=== PATIENT | male | born 1995 | race African-American/Black ===

== ENCOUNTER 2018-01-15 05:27 | Inpatient (IN) | payer MEDICAID ==
[~2018-01-15] VITALS: Ht 188 cm; Wt 110.8 kg
[2018-01-15] MEDS ORDERED: DICYCLOMINE 10 MG/ML, 2ML IM ONE (06:30)
[2018-01-15] MEDS ORDERED: ONDANSETRON ODT 4 MG PO ONE ×2 (06:30→10:30)
[2018-01-15] MEDS ORDERED: MAALOX/HYOSCYAMINE/LIDOCAINE 45 ML BTL PO ONE (06:30)
[2018-01-15] MEDS ORDERED: SODIUM CHLORIDE FLUSH 10ML SYR IVF ONE (06:30)
[2018-01-15] MEDS ORDERED: DICYCLOMINE 10 MG/ML, 2ML ONE (07:03)
[2018-01-15] MEDS ORDERED: MAALOX/HYOSCYAMINE/LIDOCAINE 45 ML BTL ONE (07:03)
[2018-01-15] MEDS ORDERED: ONDANSETRON ODT 4 MG ONE ×2 (07:03→10:26)
[2018-01-15 07:16] LABS: ALANINE AMINOTRANSFERASE 31 U/L (12-78); ALBUMIN 3.8 g/dL (3.4-5.0); ANION GAP 6 mmol/L (5-15); CALCIUM 9.4 mg/dL (8.5-10.1); CHLORIDE 106 mmol/L (98-107); CREATININE 0.93 mg/dL (0.7-1.3)
[2018-01-15 07:19] LABS: ALKALINE PHOSPHATASE 84 U/L (45-117); BILIRUBIN,TOTAL 0.4 mg/dL (0.2-1.0); TOTAL PROTEIN 8.4 g/dL (6.4-8.2)
[2018-01-15 07:36] LABS: MICROSCOPIC INDICATED
[2018-01-15 07:44] LABS: CULTURE INDICATED? NO
[2018-01-15 08:08] LABS: BASOPHILS # (AUTO) 0.01 x10^3/uL (0-0.1); BASOPHILS % (AUTO) 0 % (0-1); EOSINOPHILS # (AUTO) 0.02 x10^3/uL (0-0.4); EOSINOPHILS % (AUTO) 0 % (1-7); LYMPHOCYTES # (AUTO) 1.06 x10^3/uL (1-3.4); LYMPHOCYTES % (AUTO) 11 % (22-44); MD SCAN; MEAN CORPUSCULAR HEMOGLOBIN 28.9 pg (27.5-34.5); MEAN CORPUSCULAR HGB CONC 33.7 g/dL (33.2-36.2); MEAN CORPUSCULAR VOLUME 85.8 fL (81-97); MEAN PLATELET VOLUME 9.4 fL (7.4-10.4); MONOCYTES # (AUTO) 0.59 x10^3/uL (0.2-0.8); MONOCYTES % (AUTO) 6 % (2-9); NEUTROPHILS # (AUTO) 7.74 x10^3/uL (1.8-6.8); NEUTROPHILS % (AUTO) 82 % (42-75); PLATELET COUNT 168 x10^3/uL (130-400); RED BLOOD COUNT 5.77 x10^6/uL (4.38-5.82); RED CELL DISTRIBUTION WIDTH 13.9 % (9.4-14.8)
[2018-01-15] MEDS ORDERED: PROMETHAZINE 25 MG/ML, 1ML IM ONE (09:00)
[2018-01-15] MEDS ORDERED: PROMETHAZINE 25 MG/ML, 1ML ONE (09:06)
[2018-01-15] MEDS: SODIUM CHLORIDE 0.9% 1,000 ML IV SCH ×2 (10:19→10:25)
[2018-01-15] MEDS ORDERED: KETOROLAC 30 MG/1 ML IV PRN (12:30)
[2018-01-15] MEDS ORDERED: ONDANSETRON 2MG/ML, 2ML IVPush PRN (12:30)
[2018-01-15] MEDS ORDERED: ENALAPRILAT 1.25 MG/ML, 2ML IVPush PRN (12:30)
[2018-01-15] MEDS ORDERED: ACETAMINOPHEN 325 MG TABLET PO PRN (12:30)
[2018-01-15] MEDS ORDERED: LABETALOL 5MG/ML, 20ML IVPush PRN (12:30)
[2018-01-15] MEDS ORDERED: POTASSIUM CHLORIDE 40 MEQ in SODIUM CHLORIDE 0.9% 500 ML IV ONE (12:30)
[2018-01-15 13:10] VITALS: BP 136/87
[2018-01-15 13:29] LABS: CHOL/HDL RATIO 3.2
[2018-01-15 13:39] LABS: HEMOGLOBIN A1C 5.9 % (4.2-6.3)
[2018-01-15 15:06] LABS: CLOSTRIDIUM DIFFICILE ANTIGEN POSITIVE; CLOSTRIDIUM DIFFICILE TOXIN POSITIVE (Negative)
[2018-01-15] MEDS: VANCOMYCIN 50 MG/ML ORAL SUSP PO SCH ×2 (16:08→20:03)
[2018-01-15 17:17] LABS: AMPHETAMINE SCREEN, URINE Negative (Negative); BARBITURATE SCREEN, URINE Negative (Negative); BENZODIAZEPINE SCREEN, URINE Negative (Negative); CANNABINOID SCREEN, URINE Negative (Negative); COCAINE SCREEN, URINE Negative (Negative); METHADONE SCREEN, URINE Negative (Negative); OPIATE SCREEN, URINE Negative (Negative)
[2018-01-15] MEDS: METRONIDAZOLE PMX 500MG/100ML 100 ML IV SCH (18:07)
[2018-01-15 19:00] VITALS: BP 136/87
[2018-01-15] MEDS: METOCLOPRAMIDE 5 MG/ML, 2ML IVPush PRN (20:02)
[2018-01-16] MEDS: METRONIDAZOLE PMX 500MG/100ML 100 ML IV SCH ×3 (00:04→16:38)
[2018-01-16 01:50] VITALS: BP 130/77
[2018-01-16] MEDS: VANCOMYCIN 50 MG/ML ORAL SUSP PO SCH ×4 (03:27→22:14)
[2018-01-16] MEDS: METOCLOPRAMIDE 5 MG/ML, 2ML IVPush PRN ×4 (03:27→22:14)
[2018-01-16 05:24] LABS: BASOPHILS # (AUTO) 0.05 x10^3/uL (0-0.1); BASOPHILS % (AUTO) 0 % (0-1); EOSINOPHILS # (AUTO) 0.09 x10^3/uL (0-0.4); EOSINOPHILS % (AUTO) 1 % (1-7); LYMPHOCYTES # (AUTO) 1.78 x10^3/uL (1-3.4); LYMPHOCYTES % (AUTO) 16 % (22-44); MD NO; MEAN CORPUSCULAR HEMOGLOBIN 29.3 pg (27.5-34.5); MEAN CORPUSCULAR HGB CONC 33.6 g/dL (33.2-36.2); MEAN CORPUSCULAR VOLUME 87.2 fL (81-97); MEAN PLATELET VOLUME 9.5 fL (7.4-10.4); MONOCYTES # (AUTO) 1.01 x10^3/uL (0.2-0.8); MONOCYTES % (AUTO) 9 % (2-9); NEUTROPHILS # (AUTO) 8.25 x10^3/uL (1.8-6.8); NEUTROPHILS % (AUTO) 74 % (42-75); PLATELET COUNT 216 x10^3/uL (130-400)
[2018-01-16 05:36] LABS: ANION GAP 7 mmol/L (5-15); CALCIUM 8.9 mg/dL (8.5-10.1); CHLORIDE 107 mmol/L (98-107); CREATININE 1.02 mg/dL (0.7-1.3)
[2018-01-16 08:32] VITALS: BP 118/76
[2018-01-16 14:30] VITALS: BP 123/78
[2018-01-16 18:25] VITALS: BP 119/67
[2018-01-17] MEDS: METRONIDAZOLE PMX 500MG/100ML 100 ML IV SCH ×2 (00:34→08:41)
[2018-01-17 01:35] VITALS: BP 118/69
[2018-01-17] MEDS: VANCOMYCIN 50 MG/ML ORAL SUSP PO SCH ×2 (03:32→08:42)
[2018-01-17 05:53] LABS: ANION GAP 8 mmol/L (5-15); CALCIUM 9.1 mg/dL (8.5-10.1); CHLORIDE 104 mmol/L (98-107); CREATININE 1.03 mg/dL (0.7-1.3)
[2018-01-17 05:57] LABS: BASOPHILS # (AUTO) 0.03 x10^3/uL (0-0.1); BASOPHILS % (AUTO) 0 % (0-1); EOSINOPHILS # (AUTO) 0.11 x10^3/uL (0-0.4); EOSINOPHILS % (AUTO) 1 % (1-7); LYMPHOCYTES # (AUTO) 2.23 x10^3/uL (1-3.4); LYMPHOCYTES % (AUTO) 25 % (22-44); MD NO; MEAN CORPUSCULAR HEMOGLOBIN 29.2 pg (27.5-34.5); MEAN CORPUSCULAR HGB CONC 33.9 g/dL (33.2-36.2); MEAN CORPUSCULAR VOLUME 86.3 fL (81-97); MEAN PLATELET VOLUME 9.8 fL (7.4-10.4); MONOCYTES # (AUTO) 0.93 x10^3/uL (0.2-0.8); MONOCYTES % (AUTO) 10 % (2-9); NEUTROPHILS # (AUTO) 5.66 x10^3/uL (1.8-6.8); NEUTROPHILS % (AUTO) 63 % (42-75); PLATELET COUNT 217 x10^3/uL (130-400); RED BLOOD COUNT 5.41 x10^6/uL (4.38-5.82); RED CELL DISTRIBUTION WIDTH 13.9 % (9.4-14.8)
[2018-01-17 07:13] VITALS: BP 114/63
[2018-01-17] MEDS ORDERED: POTASSIUM CHLORIDE 20 MEQ TAB.ER.PRT PO SCH (08:00)
[2018-01-17] MEDS ORDERED: VANC1VIA3 PO (08:16)
[2018-01-17] MEDS ORDERED: ONDA4TAB10 PO (08:16)
== END 2018-01-17 14:18 | disposition home or self-care (01) | DRG 373 ==
LOC: ED 06:52 → INTOOBSV 11:34 → EDIP 11:34 → OBSVTOIN 11:34 → 3NE 12:21
PROVIDERS: ADMIT Hospitalist; ATTEND Hospitalist
DX: A04.72 Enterocolitis due to Clostridium difficile, not specified as recurrent (principal); R10.12 Left upper quadrant pain; F12.90 Cannabis use, unspecified, uncomplicated; E87.6 Hypokalemia; B96.89 Other specified bacterial agents as the cause of diseases classified elsewhere; R11.2 Nausea with vomiting, unspecified
CPT/HCPCS: 36415; 99285; J3370; 80048; 80053; 80061; 80307; 81001; 83036; 83690; 83735; 84100; 85025; 87324; 96372; G0378; J2550; J3480; Q0162; J0500; J2765; J7030; J7040